=== PATIENT | female | born 1975 | race Caucasian/White ===

== ENCOUNTER 2021-12-05 05:27 | Outpatient (CLI) | payer MEDICAID ==
[~2021-12-05] VITALS: Ht 172 cm; Wt 60.0 kg
[2021-12-05] MEDS ORDERED: ARPZ20T PO (15:13)
[2021-12-05] MEDS ORDERED: CITA40TA19 PO (15:13)
[2021-12-05] MEDS ORDERED: DOXE100C4 PO (15:13)
== END 2021-12-05 15:18 | disposition home or self-care (01) ==
LOC: PREOP 05:27
PROVIDERS: ATTEND Surgery
DX: Z01.818 Encounter for other preprocedural examination (principal)

== ENCOUNTER → 2021-12-12 | Day surgery (SDC) | payer MEDICAID ==
[~2021-12-12] VITALS: Ht 172 cm; Wt 60.0 kg
[~2021-12-12] MED LIST: ARPZ20T PO; CITA40TA19 PO; DOXE100C4 PO; LACTATED RINGERS 1,000 ML IV PRN; ceFAZolin 2 GM IV Premixed 50 ML IV ONE
[2021-12-12 07:35] VITALS: BP 96/66
[2021-12-12 08:07] LABS: AMPHETAMINE SCREEN, URINE POSITIVE (NEGATIVE); BARBITURATE SCREEN URINE NEGATIVE (NEGATIVE); BENZODIAZEPINES SCREEN URINE NEGATIVE (NEGATIVE); CANNABINOID SCREEN, URINE NEGATIVE (NEGATIVE); COCAINE SCREEN URINE NEGATIVE (NEGATIVE); METHADONE STAT NEGATIVE (NEGATIVE); OPIATE SCREEN URINE NEGATIVE (NEGATIVE); OXYCODONE STAT NEGATIVE (NEGATIVE); PROPOXYPHENE STAT NEGATIVE (NEGATIVE); TRICYCLIC ANTIDEPRESSANTS SCRE POSITIVE (NEGATIVE)
== END ==
LOC: SDC 07:27
PROVIDERS: ATTEND Surgery
DX: R19.04 Left lower quadrant abdominal swelling, mass and lump (principal); R19.02 Left upper quadrant abdominal swelling, mass and lump; Z53.8 Procedure and treatment not carried out for other reasons
CPT/HCPCS: 80306; 84703; 87081

== ENCOUNTER → 2021-12-26 | Outpatient (CLI) | payer MEDICAID ==
[~2021-12-26] MED LIST changes: -LACTATED RINGERS 1,000 ML IV PRN; -ceFAZolin 2 GM IV Premixed 50 ML IV ONE
== END | disposition home or self-care (01) ==
LOC: PREOP 05:34
PROVIDERS: ATTEND Surgery
DX: Z01.818 Encounter for other preprocedural examination (principal)